=== PATIENT | male | born 1990 | race Native Hawaiian/Other Pacific Islander ===

== ENCOUNTER → 2017-09-22 14:00 | Outpatient (CLI) | payer OTHER | END | disposition home or self-care (01) | LOC: AMB 14:00 | DX: Z04.8 Encounter for examination and observation for other specified reasons (principal) ==

== ENCOUNTER 2018-03-22 08:54 | Emergency (ER) | payer OTHER ==
[~2018-03-22] VITALS: Ht 167.6 cm; Wt 79.4 kg
[2018-03-22 09:00] VITALS: TEMP 97.9
[2018-03-22 09:33] LABS: PLATELET COUNT 242 K/uL (142-355)
[2018-03-22 09:40] LABS: POTASSIUM 3.9 mmol/L (3.6-5.2)
[2018-03-22 12:10] VITALS: BP 148/72
== END 2018-03-22 12:10 | disposition home or self-care (01) ==
LOC: ED 08:54
PROVIDERS: Emergency Medicine
DX: N13.2 Hydronephrosis with renal and ureteral calculous obstruction (principal)
CPT/HCPCS: 36415; 80053; 81000; 82150; 83690; 85027; 96374; 99284

== ENCOUNTER 2018-04-10 09:48 | Emergency (ER) | payer OTHER ==
[~2018-04-10] VITALS: Ht 167.6 cm; Wt 77.1 kg
[2018-04-10 09:48] VITALS: TEMP 97.5
[2018-04-10 11:10] LABS: PLATELET COUNT 270 K/uL (142-355)
[2018-04-10 11:18] LABS: POTASSIUM 3.9 mmol/L (3.6-5.2)
[2018-04-10 13:20] VITALS: BP 152/69
== END 2018-04-10 13:20 | disposition home or self-care (01) ==
LOC: ED 09:48
PROVIDERS: Family Medicine
DX: N20.0 Calculus of kidney (principal); N23 Unspecified renal colic
CPT/HCPCS: 36415; 80053; 81000; 85027; 96365; 96374; 96375; 99284; J1885; J2405

== ENCOUNTER 2018-04-12 04:50 | Emergency (ER) | payer OTHER ==
[~2018-04-12] VITALS: Ht 167.6 cm; Wt 77.1 kg
[2018-04-12 05:24] LABS: PLATELET COUNT 267 K/uL (142-355)
[2018-04-12 06:29] VITALS: BP 151/138; TEMP 97.7
== END 2018-04-12 06:29 | disposition home or self-care (01) ==
LOC: ED 04:50
PROVIDERS: Emergency Medicine
DX: N20.1 Calculus of ureter (principal)
CPT/HCPCS: 36415; 80053; 81000; 85027; 96365; 96374; 96375; 99284; J1885; J2405

== ENCOUNTER 2021-10-20 18:06 | Emergency (ER) | payer OTHER ==
[~2021-10-20] VITALS: Ht 167.6 cm; Wt 83.9 kg
[2021-10-20 20:22] VITALS: BP 140/96; TEMP 98.9
== END 2021-10-20 20:26 | disposition home or self-care (01) ==
LOC: ED 18:06
DX: J20.9 Acute bronchitis, unspecified (principal); Z20.822 Contact with and (suspected) exposure to COVID-19
CPT/HCPCS: 87502; 87635; 87651; 99283; U0003

== ENCOUNTER 2022-06-22 06:02 | Emergency (ER) | payer OTHER ==
[~2022-06-22] VITALS: Ht 167.6 cm; Wt 83.9 kg
[2022-06-22 06:10] VITALS: BP 139/94; TEMP 98.7
[2022-06-22 07:04] LABS: PLATELET COUNT 264 K/uL (142-355)
[2022-06-22 07:12] LABS: POTASSIUM 4.3 mmol/L (3.6-5.2)
== END 2022-06-22 08:00 | disposition home or self-care (01) ==
LOC: ED 06:02
PROVIDERS: Emergency Medicine
DX: N20.0 Calculus of kidney (principal); N13.39 Other hydronephrosis; K76.0 Fatty (change of) liver, not elsewhere classified; Z72.0 Tobacco use
CPT/HCPCS: 36415; 80053; 81000; 85027; 96361; 96374; 96375; 99284; J1885; J2405